=== PATIENT | male | born 1985 | race Caucasian/White ===

== ENCOUNTER 2017-10-14 16:45 | Emergency (ER) | payer BC, OTHER ==
[~2017-10-14] VITALS: Ht 177.8 cm; Wt 64.8 kg
[2017-10-14 16:47] VITALS: TEMP 37; Ht 177.8 cm; Wt 64.8 kg
[2017-10-14 17:42] LABS: BASO % 0.6 %; BASO ABS # 0.06 K/uL (0-0.2); EOS % 1.2 %; EOS ABS # 0.12 K/uL (0-0.5); HEMATOCRIT 43.1 % (42-52); IG# 0.02 K/uL (0.00-0.02); LYMPH % 23.2 %; LYMPH ABS # 2.31 K/uL (1.2-3.4); MEAN CELL VOLUME 86.2 fL (80-100); MEAN CORPUSCULAR HGB CONC 34.8 g/dl (32-36); MEAN PLATELET VOLUME 10.9 fL (7.4-10.4); MONO % 10.2 %; MONO ABS # 1.01 K/uL (0.11-0.59); NEUT % 64.6 %; NEUT ABS # 6.43 K/uL (1.4-6.5); PLATELET COUNT 229 K/uL (130-400); RED CELL DISTRIBUTION WIDTH CV 12.8 % (11.5-14.5); RED CELL DISTRIBUTION WIDTH SD 40.3 fL (36.4-46.3); WHITE BLOOD COUNT 9.95 K/uL (4.8-10.8)
[2017-10-14 18:03] LABS: ALBUMIN 4.3 gm/dl (3.4-5.0); CALCIUM 9.3 mg/dl (8.5-10.1); CREATININE 1.15 mg/dl (0.60-1.40); POTASSIUM 3.9 mmol/L (3.5-5.1)
[2017-10-14] MEDS ORDERED: IBUP-1050 PO (18:17)
--- NOTE | 2017-10-14 22:32 | EMERGENCY ROOM VISIT NOTE ---
History Report prepared by Shawn: Tanja Wong Under the Supervision of: Dr. Jai Loco D.O. First contact with patient: 16:54 Chief Complaint: MENTAL HEALTH EVALUATION Stated Complaint: MENTAL HEALTH EVALUATION,VOLUNTARY History of Present Illness The patient is a 31 year old male who presents to the Emergency Room for a mental health evaluation. The patient was arguing with his girlfriend today. She left him around 1000 this morning. He sent her text messages saying that he did not want to live without her. She called the police and the patient was brought into the ED by the [facility] troopers. He denies any suicidal intentions in his text messages. He denies any thoughts of hurting himself or others. He denies any previous suicide attempts. He denies having any physical complaints. He states that he is just anxious. Pt denies headache, change in vision, fevers , chest pain, shortness of breath, nausea, vomiting, diarrhea, and pain with urination. Source of History: patient Onset: this morning Position: other (mental health) Quality: other (evaluation) Timing: other (episodic) Note: Pt reports anxiety. Pt denies SI or HI. Review of Systems See HPI for pertinent positives & negatives. A total of 10 systems reviewed and were otherwise negative. Past Medical & Surgical Medical Problems: (1) Bronchitis (2) Pneumonia Family History No pertinent family history stated. Social History Smoking Status: Current Every Day Smoker Occupation Status: employed Current/Historical Medications Scheduled Ibuprofen (Advil), 400 MG PO PRN UD Allergies Uncoded Allergies: NKDA (Allergy, Unknown, 09/20/03) Physical Exam Vital Signs Date Time Temp Pulse Resp B/P (MAP) Pulse Ox O2 Delivery O2 Flow Rate FiO2 10/14/17 18:37 67 16 127/78 97 Room Air 10/14/17 16:47 37.0 89 20 144/89 97 Room Air Physical Exam GENERAL: Sitting up in bed, alert, well appearing, well nourished, no distress, non-toxic EYE EXAM: normal conjunctiva. OROPHARYNX: no exudate, no erythema, lips, buccal mucosa, and tongue normal and mucous membranes are moist NECK: supple, no nuchal rigidity, no adenopathy, non-tender LUNGS: Clear to auscultation. Normal chest wall mechanics HEART: no murmurs, S1 normal and S2 normal ABDOMEN: abdomen soft, non-tender, normo-active bowel sounds, no masses, no rebound or guarding. BACK: Back is symmetrical on inspection and there is no deformity, no midline tenderness, no CVA tenderness. SKIN: no rashes and no bruising UPPER EXTREMITIES: upper extremities are grossly normal. LOWER EXTREMITIES: No pitting edema. NEURO EXAM: Normal sensorium, cranial nerves II-XII grossly intact, normal speech, no gross weakness of arms, no gross weakness of legs. PSYCH: Denies any suicidal or homicidal ideation. Medical Decision & Procedures Laboratory Results 10/14/17 17:12 Red Blood Count 5.00, Mean Corpuscular Volume 86.2, Mean Corpuscular Hemoglobin 30.0, Mean Corpuscular Hemoglobin Concent 34.8, Mean Platelet Volume 10.9, Neutrophils (%) (Auto) 64.6, Lymphocytes (%) (Auto) 23.2, Monocytes (%) (Auto) 10.2, Eosinophils (%) (Auto) 1.2, Basophils (%) (Auto) 0.6, Neutrophils # (Auto ) 6.43, Lymphocytes # (Auto) 2.31, Monocytes # (Auto) 1.01, Eosinophils # (Auto ) 0.12, Basophils # (Auto) 0.06 10/14/17 17:12 Test 10/14/17 17:12 10/14/17 17:15 White Blood Count 9.95 K/uL (4.8-10.8) Red Blood Count 5.00 M/uL (4.7-6.1) Hemoglobin 15.0 g/dL (14.0-18.0) Hematocrit 43.1 % (42-52) Mean Corpuscular Volume 86.2 fL (80-100) Mean Corpuscular Hemoglobin 30.0 pg (25-34) Mean Corpuscular Hemoglobin Concent 34.8 g/dl (32-36) Platelet Count 229 K/uL (130-400) Mean Platelet Volume 10.9 fL (7.4-10.4) Neutrophils (%) (Auto) 64.6 % Lymphocytes (%) (Auto) 23.2 % Monocytes (%) (Auto) 10.2 % Eosinophils (%) (Auto) 1.2 % Basophils (%) (Auto) 0.6 % Neutrophils # (Auto) 6.43 K/uL (1.4-6.5) Lymphocytes # (Auto) 2.31 K/uL (1.2-3.4) Monocytes # (Auto) 1.01 K/uL (0.11-0.59) Eosinophils # (Auto) 0.12 K/uL (0-0.5) Basophils # (Auto) 0.06 K/uL (0-0.2) RDW Standard Deviation 40.3 fL (36.4-46.3) RDW Coefficient of Variation 12.8 % (11.5-14.5) Immature Granulocyte % (Auto) 0.2 % Immature Granulocyte # (Auto) 0.02 K/uL (0.00-0.02) Anion Gap 8.0 mmol/L (3-11) Est Creatinine Clear Calc Drug Dose 83.7 ml/min Estimated GFR () 96.4 Estimated GFR (Non- 83.2 BUN/Creatinine Ratio 7.8 (10-20) Calcium Level 9.3 mg/dl (8.5-10.1) Total Bilirubin 0.7 mg/dl (0.2-1) Direct Bilirubin 0.1 mg/dl (0-0.2) Aspartate Amino Transf (AST/SGOT) 19 U/L (15-37) Alanine Aminotransferase (ALT/SGPT) 23 U/L (12-78) Alkaline Phosphatase 91 U/L (45-117) Total Protein 8.0 gm/dl (6.4-8.2) Albumin 4.3 gm/dl (3.4-5.0) Thyroid Stimulating Hormone (TSH) 1.370 uIu/ml (0.300-4.500) Ethyl Alcohol mg/dL 25.2 mg/dl (0-3) Urine Color YELLOW Urine Appearance CLEAR (CLEAR) Urine pH 6.0 (4.5-7.5) Urine Specific [place] 1.018 (1.000-1.030) Urine Protein NEG (NEG) Urine Glucose (UA) NEG (NEG) Urine Ketones TRACE (NEG) Urine Occult Blood NEG (NEG) Urine Nitrite NEG (NEG) Urine Bilirubin NEG (NEG) Urine Urobilinogen NEG (NEG) Urine Leukocyte Esterase NEG (NEG) Urine Opiates Screen NEG (NEG) Urine Methadone, Qualitative NEG (NEG) Urine Barbiturates NEG (NEG) Urine Phencyclidine (PCP) Level NEG (NEG) Ur Amphetamine/Methamphetamine NEG (NEG) MDMA (Ecstasy) Screen NEG (NEG) Urine Benzodiazepines Screen NEG (NEG) Urine Cocaine Metabolite NEG (NEG) Urine Marijuana (THC) NEG (NEG) Laboratory results per my review. ED Course ED COURSE: Vital signs were reviewed and showed normal vitals. The patients medical record was reviewed The above diagnostic studies were performed and reviewed. ED treatments and interventions as stated above. 1701: The patient was evaluated in room A5. A complete history and physical examination was performed. 1849: I reevaluated the patient. He is doing well. 2009: Upon reevaluation, the patient does not see the point in having inpatient psychiatric care. I discussed my findings with the patient. I discussed with him 201 and 302. Based on the patients age, coexisting illnesses, exam and lab findings the decision to treat as an inpatient was made. The patient will be 302ed. The patient remained stable while under my care. The patient will be placed for inpatient psychiatric care. 2129: The patient has been accepted to the [facility]. Medical Decision Differential diagnosis: Etiologies such as mood disorder, infection, hypoglycemia, electrolyte abnormalities, cardiac sources, intracerebral event, toxicologic, neurologic, as well as others were entertained. Patient is a 31-year-old male who presents to ER brought in by police for allegedly making suicidal statements. On my evaluation patient denies everything. He notes that him and his girlfriend broke up and he did make a statement that he he would not want to live without her. He notes he said nothing additionally. Upon review of the text messages patient stated that he was going to kill himself. Pt with poor insight. CBC all BMP, LFTs was unremarkable. Alcohol was 25. Urine tox is negative. Patient had no physical complaints. He was evaluated by Irena from our psychiatric department. Patient stated on multiple occasions that he didn't want to come in. Based on this the did elect to use 302. Patient was eventually accepted to the [facility] on a 302. Medication Reconcilliation Current Medication List: was personally reviewed by me Blood Pressure Screening Patient's blood pressure: Normal blood pressure Blood pressure disposition: Did not require urgent referral Impression Primary Impression: Mood disorder Additional Impression: Suicidal ideation Scribe Attestation The scribe's documentation has been prepared under my direction and personally reviewed by me in its entirety. I confirm that the note above accurately reflects all work, treatment, procedures, and medical decision making performed by me. Departure Information Dispostion Mental Health Acute Care Referrals No Doctor, Assigned (PCP) Patient Instructions My [facility] Problem Qualifiers
[2017-10-14 22:37] VITALS: BP 130/83; PULSE 69; O2SAT 98
== END 2017-10-14 22:34 ==
LOC: C.EDB 16:46 → C.EDA 22:34
DX: F39 Unspecified mood [affective] disorder (principal); R45.851 Suicidal ideations; F17.200 Nicotine dependence, unspecified, uncomplicated